=== PATIENT | male | born 1985 | race Caucasian/White ===

== ENCOUNTER 2022-03-07 10:25 | Emergency (ER) | payer MEDICARE, SELFPAY ==
[2022-03-07 10:25] VITALS: BP 138/91; PULSE 92; RESP 16; TEMP 36.1; O2SAT 97; BMI 24.3
--- NOTE | 2022-03-07 11:08 | RAD_ITS ---
STUDY: X-RAY - RIGHT RADIUS AND ULNA REASON FOR EXAM: Male, 36 years old. Pain. Impact with shovel. TECHNIQUE: 2 view(s) of the forearm. COMPARISON: None. FINDINGS: There is no demonstrated soft tissue swelling. Normal visualized radius. Normal visualized ulna. RAD/Forearm 2 Views IMPRESSION: Normal x-ray examination of the radius and ulna. Electronically Signed: Michelle Arzate MD at 11:38 EST ,
--- NOTE | 2022-03-07 11:09 | EX.ED.UPPERE ---
HPI History of Present Illness HPI Narrative: Right forearm pain after shoveling. 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 He is actually from [place] with an area seeing one of his physicians. He was shoveling dirt the other day on Tuesday and later that day started having discomfort to his right forearm. The pain is gotten worse instead of better. He has been using ibuprofen without significant relief. He denies any fall or trauma. He is right-hand dominant. He denies ever having any surgery to this arm. Prior similar symptoms: No Recent Illness/Hospitalization: No PFSH PFSH Allergy/AdvReac Type Severity Reaction Status Date / Time No Known Allergies Allergy Verified 03/07/22 10:27 Social History Smoking Status: Current every day smoker tobacco type: cigarettes ROS ROS ED ROS Narrative Denies recent illness. Review of Systems ROS Unobtainable: Denies due to encephalopathy Constitutional Constitutional ED: Denies chills or fever(s) Eyes Eyes: Denies blurry vision ENT ENT ED: Denies ear pain Cardiovascular Cardiovascular: Denies chest pain Respiratory/Chest Respiratory/Chest: Denies cough or dyspnea Gastrointestinal Gastrointestinal: Denies abdominal pain Genitourinary Genitourinary ED: Denies dysuria or hematuria Musculoskeletal Musculoskeletal: Denies back pain Integumentary Denies abscess Neurologic Neurologic: Denies headache(s) Psychiatric Psychiatric: Denies anxiety Endocrine Endocrinology: Denies cold intolerance Hematologic/Lymphatic Hematologic/Lymphatic: Denies easy bleeding Allergic/Immunologic Allergic/Immunologic ED: Denies mouth swelling or tongue swelling EXAM Physical Exam Narrative Exam Narrative: Well-appearing 36-year-old male. Vital signs stable afebrile. HEENT exam unremarkable. Lungs clear. Heart regular rhythm. Chest were nontender. Abdomen soft nontender. Moving all 4 extremities. Neurovascularly intact. He has full range of motion to his right shoulder, elbow, wrist and hand. 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 Normal radial pulse. He has tenderness along the muscles of the right forearm on the dorsal aspect along the radius. He has pain with ulnar deviation of his hand and wrist. Exam is consistent with myofascial strain and tendinitis. There is no bony deformity. He has full flexion-extension of his right hand, wrist and elbow. There is no axillary lymphadenopathy. Const Vital Signs: 03/07/22 10:25 Temperature 97 F L Temperature Source Temporal Pulse Rate 92 Respiratory Rate 16 Blood Pressure 138/91 H Blood Pressure Mean 106 Pulse Ox 97 Oxygen Delivery Method Room Air Positive well nourished and well developed; Negative for obese, cachectic, contractures or unkempt General Appearance ED: well developed and NAD; Negative for unkempt, cachectic, contractures, cyanotic or diaphoretic Nutritional Appearance: Negative for cachectic or obese HEENT Reports moist mucous membranes normocephalic and atraumatic; Negative for trauma or tenderness Eyes PERRL and EOMs intact bilaterally General Eye ED: Negative for other Neck full ROM and supple General: Negative for tenderness Lymph Lymphatic: Negative for other Chest Wall inspection of chest normal and palpation of chest normal Chest: Negative for other Resp normal respiratory effort and clear to auscultation bilaterally Effort and Inspection: Negative for pain with movement Auscultation: Negative for rales, rhonchi, wheezes or diminished lung sounds Cardio regular rate, regular rhythm, S1 normal heart sound, S2 normal heart sound and no murmurs Rate: Negative for bradycardia or tachycardic Rhythm: Negative for abnormal rhythm GI non-tender, non-distended and no masses Inspection: Negative for abdominal distention Auscultation: normoactive bowel sounds Palpation: soft; Negative for tender or guarding Back/Spine no CVA tenderness Extremity normal to inspection and full ROM Extremity Narrative: Except right forearm tenderness along the forearm muscles on the extensor side. Dorsum aspect of his right radial forearm. No bony deformity. Full flexion extension of the elbow and wrist. Full flexion-extension and strength of the right hand. Exam consistent with a myofascial strain and tendinitis. Neuro oriented x3, CN's II-XII intact bilaterally, moves all extremities and no focal motor deficits Sensorium / Orientation: alert, oriented to person, oriented to place and oriented to time Sensory Exam: No sensory level loss detected Motor Exam: strength 5/5 throughout Psych mental status grossly normal Appearance: Negative for unkempt Attitude: No agitated Mood & Affect: Negative for depressed, anxious or tearful Skin General Skin Exam: Negative for petechiae Lesions: no lesions Rashes: no rashes Trauma: no lacerations or abrasions MDM MDM MDM Narrative Medical decision making narrative: 36-year-old male with right forearm pain after shoveling consistent with myofascial strain and tendinitis. Family would like imaging done so right forearm x-ray will be obtained. Radiography Diagnostic Testing: Right forearm x-rays 2 views AP and lateral interpreted by myself shows no acute abnormality. No fracture. No dislocation. Abdominal pain Discharge Plan Triage Chief Complaint: Upper Extremity Injury ED Provider: Niels Carballo Dx/Rx/DC Orders Clinical Impression: Muscle strain, Tendinitis Instructions: ED Tendonitis Primary Care Provider: Care Physician,[place] Primary Referrals: Town Doctor,Out of [Non-Staff] - 10-14 Days if not better Activity Restrictions/Additional Instructions: You have strain and inflammation of the muscles and tendons in the right forearm. Rest. Ice and elevation to decrease pain and swelling. Motrin to decrease pain and inflammation. This should progressively get better with time. Follow-up with your doctor if not improving. Disposition Disposition: Home, Self Care
== END 2022-03-07 11:48 | disposition home or self-care (01) ==
LOC: ED 11:15
PROVIDERS: Emergency Provider Emergency Medicine; Visit Provider Emergency Medicine
DX: S56.911A Strain of unspecified muscles, fascia and tendons at forearm level, right arm, initial encounter (principal); F17.210 Nicotine dependence, cigarettes, uncomplicated; M77.9 Enthesopathy, unspecified; X58.XXXA Exposure to other specified factors, initial encounter
CPT/HCPCS: 73090; 99282